=== PATIENT | male | born 1965 | race Caucasian/White ===

== ENCOUNTER 2016-08-31 14:58 | Emergency (ER) | payer OTHER ==
--- NOTE | 2016-08-31 15:06 | ER Document Report ---
ED Medical Screen (RME) - General Stated Complaint: BACK PAIN Notes: today was carrying 40lbs low back pain 5/5, has taken 400mg of motrin and lodine sharp stabbing pain denies UI, SI or sadle anesthesia ambulating with cane denies h/o chronic back pain TRAVEL OUTSIDE OF THE [place]. IN LAST 30 DAYS: No - Related Data Allergies/Adverse Reactions: Penicillins Allergy (Severe, Verified 03/23/16 11:17) Anaphylaxis Past Medical History - Social History Family history: Other - Pt is adopted - Past Medical History Cardiac Medical History: Reports: Hx Hypertension Denies: Hx Coronary Artery Disease, Hx Heart Attack Pulmonary Medical History: Denies: Hx Asthma, Hx Bronchitis, Hx COPD, Hx Pneumonia Neurological Medical History: Denies: Hx Cerebrovascular Accident, Hx Seizures Musculoskeltal Medical History: Denies Hx Arthritis - Immunizations Hx Diphtheria, Pertussis, Tetanus Vaccination: No Physical Exam - Vital signs Vitals: Temp Pulse Resp BP Pulse Ox 97.9 F 98 18 141/79 H 94 08/31/16 15:03 08/31/16 15:03 08/31/16 15:03 08/31/16 15:03 08/31/16 15:03 Course - Vital Signs Vital signs: Temp Pulse Resp BP Pulse Ox 97.9 F 98 18 141/79 H 94 08/31/16 15:03 08/31/16 15:03 08/31/16 15:03 08/31/16 15:03 08/31/16 15:03
[2016-08-31] MEDS ORDERED: LIDOCAINE 5% (700 MG) TRANSDERMAL ADH..PATCH TP ONE (16:38)
[2016-08-31] MEDS ORDERED: HYDROCODONE/ACETAMINOPHEN 5-325 MG 6 TAB/DSPK PO PRN (16:38)
--- NOTE | 2016-08-31 16:41 | ER Document Report ---
ED General - General Chief Complaint: Back Pain Stated Complaint: BACK PAIN TRAVEL OUTSIDE OF THE [place] IN LAST 30 DAYS: No - HPI Patient complains to provider of: back pain Onset: Yesterday Notes: Patient coming in for evaluation of lower back pain. Patient states bilateral lower back pain occurred after carrying partially 40 pounds. Patient states no other history of back pain and back injuries no history of back surgery. Patient denies any numbness and tingling in the perineal region no saddle anesthesias no loss of bowel or bladder function the fevers no chills no nausea no vomiting. Patient is currently ambulated with a cane which is new. - Related Data Allergies/Adverse Reactions: Penicillins Allergy (Severe, Verified 08/31/16 15:08) Anaphylaxis Past Medical History - Social History Smoking Status: Never Smoker Chew tobacco use (# tins/day): No Frequency of alcohol use: None Drug Abuse: None Family History: None Patient has suicidal ideation: No Patient has homicidal ideation: No - Past Medical History Cardiac Medical History: Reports: Hx Hypertension Denies: Hx Coronary Artery Disease, Hx Heart Attack Pulmonary Medical History: Denies: Hx Asthma, Hx Bronchitis, Hx COPD, Hx Pneumonia Neurological Medical History: Denies: Hx Cerebrovascular Accident, Hx Seizures Renal/ Medical History: Denies: Hx Peritoneal Dialysis Musculoskeltal Medical History: Denies Hx Arthritis - Immunizations Hx Diphtheria, Pertussis, Tetanus Vaccination: No Review of Systems - Review of Systems Constitutional: No symptoms reported EENT: No symptoms reported Cardiovascular: No symptoms reported Respiratory: No symptoms reported Gastrointestinal: No symptoms reported Genitourinary: No symptoms reported Male Genitourinary: No symptoms reported Musculoskeletal: Back pain Skin: No symptoms reported Hematologic/Lymphatic: No symptoms reported Neurological/Psychological: No symptoms reported -: Yes All other systems reviewed and negative Physical Exam - Vital signs Vitals: Temp Pulse Resp BP Pulse Ox 97.9 F 98 18 141/79 H 94 08/31/16 15:03 08/31/16 15:03 08/31/16 15:03 08/31/16 15:03 08/31/16 15:03 Interpretation: Normal - General General appearance: Appears well, Alert - HEENT Head: Normocephalic, Atraumatic Eyes: Normal Pupils: PERRL - Respiratory Respiratory status: No respiratory distress Chest status: Nontender Breath sounds: Normal Chest palpation: Normal - Cardiovascular Rhythm: Regular Heart sounds: Normal auscultation Murmur: No - Abdominal Inspection: Normal Distension: No distension Bowel sounds: Normal Tenderness: Nontender Organomegaly: No organomegaly - Back Back: Normal, Tender - Bilateral paraspinal tenderness no midline tenderness. No saddle anesthesias - Extremities General upper extremity: Normal inspection, Nontender, Normal color, Normal ROM , Normal temperature General lower extremity: Normal inspection, Nontender, Normal color, Normal ROM , Normal temperature, Normal weight bearing. No: Carie's sign - Neurological Neuro grossly intact: Yes Cognition: Normal Orientation: AAOx4 [place] Coma Scale Eye Opening: Spontaneous [place] Coma Scale Verbal: Oriented Mikh[place] Coma Scale Motor: Obeys Commands Mikhail Coma Scale Total: 15 Speech: Normal Motor strength normal: LUE, RUE, LLE, RLE Sensory: Normal - Psychological Associated symptoms: Normal affect, Normal mood - Skin Skin Temperature: Warm Skin Moisture: Dry Skin Color: Normal Course - Re-evaluation Re-evalutation: 08/31/16 23:06 The patient presents with low back pain without signs of spinal cord compression , cauda equina syndrome, infection, aneurysm, or other serious etiology. The patient is neurologically intact. Given the extremely low risk of these diagnoses further testing and evaluation for these possibilities does not appear to be indicated at this time. The patient has been instructed to return if the symptoms worsen or change in any way. .. - Vital Signs Vital signs: Temp Pulse Resp BP Pulse Ox 98.5 F 95 17 149/85 H 95 08/31/16 16:55 08/31/16 16:55 08/31/16 16:55 08/31/16 16:55 08/31/16 16:55 Discharge - Discharge Clinical Impression: Back pain Qualifiers: Back pain location: low back pain Chronicity: acute Back pain laterality: bilateral Sciatica presence: without sciatica Qualified Code(s): M54.5 - Low back pain Condition: Good Disposition: HOME, SELF-CARE Instructions: Ice Packs ([facility]), Low Back Pain ([facility]), Oral Narcotic Medication ( [facility]), Warm Packs ([facility]) Additional Instructions: Your x-rays on shows mild arthritis. No signs of fracture or subluxation of her spine. Please follow-up with your primary care physician for further evaluation of your back pain. Continue anti-inflammatory medication If you received good pain relief with the Lidoderm but you cannot afford them he may also try solanspa lidocaine [id number] Prescriptions: Hydrocodone Bit/Acetaminophen [Hydrocodon-Acetaminophen 5-325] 1 each PO Q6 #20 tablet Lidocaine [Lidoderm 5% (700 mg) Transdermal Patch] 1 patch TP DAILY #30 adh..patch Forms: Return to Work
[2016-08-31 17:51] VITALS: BP 149/85
== END 2016-08-31 16:55 | disposition home or self-care (01) ==
LOC: ER 14:58
DX: M54.5 Low back pain (principal); X50.0XXA Overexertion from strenuous movement or load, initial encounter; I10 Essential (primary) hypertension; Z87.892 Personal history of anaphylaxis; Z88.0 Allergy status to penicillin
CPT/HCPCS: 72110; 99283

== ENCOUNTER 2017-03-04 11:31 | Emergency (ER) | payer OTHER ==
--- NOTE | 2017-03-04 12:06 | ER Document Report ---
ED Psych Disorder / Suicide - General Stated Complaint: PSYCH EVAL Time Seen by Provider: 03/04/17 11:53 Mode of Arrival: Ambulatory Information source: Patient TRAVEL OUTSIDE OF THE [place] IN LAST 30 DAYS: No - HPI Patient complains to provider of: Suicidal ideation, Suicidal plan Onset: Other - 2 days Onset was: Sudden Quality of pain: No pain Suicide Risk Factors: Depressed, Male Normal mood: No Associated symptoms: Depressed, Flat affect Similar symptoms previously: No Recently seen / treated by doctor: Yes Notes: Patient is a 51-year-old male who was sent from the [place] for complaints of suicidal ideation with plan to overdose on his medications, he reports the symptoms started 2 days ago, when I asked him what occurred 2 days ago to make him feel this way he stated "I do not really want to talk about it right now", he denies any history of similar symptoms previously, has never been in any counseling or mental health treatment prior, does not currently take any mental health medications, denies pain or injury - Related Data Allergies/Adverse Reactions: Penicillins Allergy (Severe, Verified 03/04/17 12:35) Anaphylaxis Past Medical History - General Information source: Patient - Social History Smoking Status: Current Every Day Smoker Frequency of alcohol use: Occasional Family History: None - Past Medical History Cardiac Medical History: Reports: Hx Hypertension Denies: Hx Coronary Artery Disease, Hx Heart Attack Pulmonary Medical History: Denies: Hx Asthma, Hx Bronchitis, Hx COPD, Hx Pneumonia Neurological Medical History: Denies: Hx Cerebrovascular Accident, Hx Seizures Renal/ Medical History: Denies: Hx Peritoneal Dialysis Musculoskeltal Medical History: Denies Hx Arthritis - Immunizations Hx Diphtheria, Pertussis, Tetanus Vaccination: No Review of Systems - Review of Systems Constitutional: No symptoms reported EENT: No symptoms reported Cardiovascular: No symptoms reported Respiratory: No symptoms reported Gastrointestinal: No symptoms reported Genitourinary: No symptoms reported Male Genitourinary: No symptoms reported Musculoskeletal: No symptoms reported Skin: No symptoms reported Hematologic/Lymphatic: No symptoms reported Neurological/Psychological: See HPI -: Yes All other systems reviewed and negative Physical Exam - Vital signs Vitals: Temp Pulse Resp BP Pulse Ox 98.3 F 75 20 132/83 H 95 03/04/17 12:13 03/04/17 12:13 03/04/17 12:13 03/04/17 12:13 03/04/17 12:13 Interpretation: Normal - General General appearance: Appears well, Alert - HEENT Head: Normocephalic, Atraumatic Eyes: Normal Pupils: PERRL - Respiratory Respiratory status: No respiratory distress Chest status: Nontender Breath sounds: Normal Chest palpation: Normal - Cardiovascular Rhythm: Regular Heart sounds: Normal auscultation Murmur: No - Abdominal Inspection: Obese Distension: No distension Bowel sounds: Normal Tenderness: Nontender Organomegaly: No organomegaly - Back Back: Normal, Nontender - Extremities General upper extremity: Normal inspection, Nontender, Normal color, Normal ROM , Normal temperature General lower extremity: Normal inspection, Nontender, Normal color, Normal ROM , Normal temperature, Normal weight bearing. No: Carie's sign - Neurological Neuro grossly intact: Yes Cognition: Normal Orientation: AAOx4 Mikh[place] Coma Scale Eye Opening: Spontaneous [place] Coma Scale Verbal: Oriented [place] Coma Scale Motor: Obeys Commands Mikhail Coma Scale Total: 15 Speech: Normal Motor strength normal: LUE, RUE, LLE, RLE Sensory: Normal - Psychological Associated symptoms: Depressed, Flat affect - Skin Skin Temperature: Warm Skin Moisture: Dry Skin Color: Normal Course - Re-evaluation Re-evalutation: 03/04/17 14:31 this patient has been seen and evaluated by mental health team who recommended for involuntary commitment, IVC paperwork has been completed, patient will remain in the emergency room for safety due to suicidal ideation with plan, he is otherwise medically stable for transfer or discharge - Vital Signs Vital signs: Temp Pulse Resp BP Pulse Ox 98.3 F 75 20 132/83 H 95 03/04/17 12:13 03/04/17 12:13 03/04/17 12:13 03/04/17 12:13 03/04/17 12:13 - Laboratory Result Diagrams: 03/04/17 11:50 03/04/17 11:50 Laboratory results interpreted by me: 03/04/17 03/04/17 03/04/17 11:50 11:50 12:40 RDW 14.8 H Seg Neutrophils % 82.8 H Lymphocytes % 11.8 L Absolute Neutrophils 8.3 H Urine Ketones 20 H Salicylates < 1.0 L Acetaminophen < 10 L - EKG Interpretation by Me EKG shows normal: Sinus rhythm Rate: Normal Rhythm: NSR, APC's Discharge - Discharge Clinical Impression: Suicidal ideation Condition: Stable Disposition: PSYCH HOSP/UNIT
[2017-03-04 12:13] LABS: ABSOLUTE BASOPHILS # (AUTO) 0.1 10^3/uL (0.0-0.2); ABSOLUTE LYMPHOCYTES (AUTO) 1.2 10^3/uL (0.5-4.7); ABSOLUTE MONOCYTES (AUTO) 0.4 10^3/uL (0.1-1.4); ABSOLUTE NEUT (AUTO) 8.3 10^3/uL (1.7-8.2); BASOPHILS % (AUTO) 0.8 % (0-2); EOSINOPHILS % (AUTO) 0.3 % (0-6); HEMATOCRIT 47.8 % (37.9-51.0); HEMOGLOBIN 15.9 g/dL (13.5-17.0); HGB HCT DIFFERENCE -0.1; LYMPHOCYTES % (AUTO) 11.8 % (13-45); MEAN CORPUSCULAR HEMOGLOBIN 31.8 pg (27.0-33.4); MEAN CORPUSCULAR HGB CONC 33.3 g/dL (32.0-36.0); MEAN CORPUSCULAR VOLUME 96 fl (80-97); MONOCYTES % (AUTO) 4.3 % (3-13); RED CELL DISTRIBUTION WIDTH 14.8 % (11.5-14.0); SEGMENTED NEUTROPHILS % (AUTO) 82.8 % (42-78); WHITE BLOOD COUNT 10.1 10^3/uL (4.0-10.5)
--- NOTE | 2017-03-04 12:19 | EKG REPORT ---
SEVERITY:- ABNORMAL ECG - SINUS RHYTHM MULTIPLE ATRIAL PREMATURE COMPLEXES LEFT ANTERIOR FASCICULAR BLOCK BORDERLINE PROLONGED QT INTERVAL : Confirmed by: Catherine Squires MD 04-Mar-2017 12:18:40
[2017-03-04 12:29] LABS: ALANINE AMINOTRANSFERASE 37 U/L (21-72); ALBUMIN 4.8 g/dL (3.5-5.0); ALCOHOL < 10 mg/dL (NONE DETECTED); ALKALINE PHOSPHATASE 82 U/L (38-126); ANION GAP 14 (5-19); ASPARTATE AMINO TRANSFERASE 26 U/L (17-59); BILIRUBIN,DIRECT 0.4 mg/dL (0.0-0.4); BILIRUBIN,TOTAL 0.7 mg/dL (0.2-1.3); BLOOD UREA NITROGEN 13 mg/dL (7-20); CALCIUM 10.2 mg/dL (8.4-10.2); CARBON DIOXIDE 23 mmol/L (22-30); CHLORIDE 102 mmol/L (98-107); CREATININE RESULT 0.81 mg/dL (0.52-1.25); GLUCOSE 107 mg/dL (75-110); POTASSIUM 4.3 mmol/L (3.6-5.0); SODIUM 138.8 mmol/L (137-145); TOTAL PROTEIN 7.8 g/dL (6.3-8.2)
[2017-03-04 13:29] LABS: APPEARANCE,URINE CLEAR; BILIRUBIN,URINE NEGATIVE (NEGATIVE); GLUCOSE, URINE NEGATIVE (NEGATIVE); KETONES,URINE 20 mg/dL (NEGATIVE); LEUKOCYTE ESTERASE,URINE NEGATIVE (NEGATIVE); NITRITE,URINE NEGATIVE (NEGATIVE); PROTEIN,URINE NEGATIVE (NEGATIVE); URINE SPECIFIC GRAVITY 1.008; UROBILINOGEN,URINE NEGATIVE mg/dL (<2.0)
[2017-03-04 14:49] LABS: URINE BARBITURATES SCREEN NEGATIVE; URINE METHADONE SCREEN NEGATIVE; URINE OPIATES LOW NEGATIVE; URINE PHENCYCLIDINE SCREEN NEGATIVE
[2017-03-04] MEDS ORDERED: HYDROCHLOROTHIAZIDE 25 MG TABLET PO ONE (18:30)
[2017-03-04] MEDS ORDERED: LOSARTAN POTASSIUM 50 MG TABLET PO ONE (19:00)
[2017-03-04] MEDS ORDERED: NICOTINE 21 MG/24 HR PATCH.TD24 TD ONE (19:51)
[2017-03-04] MEDS: GABAPENTIN 300 MG CAPSULE PO SCH (22:30)
[2017-03-04] MEDS: HYDROXYZINE PAMOATE 50 MG CAPSULE PO PRN (22:30)
[2017-03-04] MEDS: BUSPIRONE HCL 10 MG TABLET PO SCH (22:30)
[2017-03-05] MEDS: BUSPIRONE HCL 10 MG TABLET PO SCH ×2 (08:53→21:06)
[2017-03-05] MEDS: HYDROXYZINE PAMOATE 50 MG CAPSULE PO PRN (10:16)
[2017-03-05] MEDS: HYDROCHLOROTHIAZIDE 25 MG TABLET PO SCH (10:17)
[2017-03-05] MEDS: GABAPENTIN 300 MG CAPSULE PO SCH ×2 (11:19→21:06)
[2017-03-05] MEDS: LOSARTAN POTASSIUM 50 MG TABLET PO SCH (11:20)
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
[2017-03-06] MEDS: BUSPIRONE HCL 10 MG TABLET PO SCH ×2 (07:39→22:18)
[2017-03-06] MEDS: HYDROXYZINE PAMOATE 50 MG CAPSULE PO PRN ×2 (07:39→14:06)
[2017-03-06] MEDS: NICOTINE 21 MG/24 HR PATCH.TD24 TD SCH (09:14)
[2017-03-06] MEDS: GABAPENTIN 300 MG CAPSULE PO SCH ×2 (09:14→22:17)
[2017-03-06] MEDS: HYDROCHLOROTHIAZIDE 25 MG TABLET PO SCH (09:15)
[2017-03-06] MEDS: LOSARTAN POTASSIUM 50 MG TABLET PO SCH (09:15)
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
[2017-03-06] MEDS ORDERED: IBUPROFEN 600 MG TABLET PO ONE ×2 (18:59→22:13)
[2017-03-06] MEDS ORDERED: IBUPROFEN 800 MG TABLET ONE (22:10)
[2017-03-07] MEDS: BUSPIRONE HCL 10 MG TABLET PO SCH (08:09)
--- NOTE | 2017-03-07 08:21 | EKG REPORT ---
SEVERITY:- NORMAL ECG - SINUS RHYTHM : Confirmed by: Regino Campos MD 07-Mar-2017 08:21:25
[2017-03-07] MEDS: LOSARTAN POTASSIUM 50 MG TABLET PO SCH (09:58)
[2017-03-07] MEDS: HYDROCHLOROTHIAZIDE 25 MG TABLET PO SCH (09:59)
[2017-03-07] MEDS: GABAPENTIN 300 MG CAPSULE PO SCH (10:00)
[2017-03-07] MEDS: NICOTINE 21 MG/24 HR PATCH.TD24 TD SCH (10:00)
[2017-03-07 17:01] VITALS: BP 136/84
== END 2017-03-07 16:55 ==
LOC: ER 11:31
DX: R45.851 Suicidal ideations (principal); F17.200 Nicotine dependence, unspecified, uncomplicated; E66.9 Obesity, unspecified; I10 Essential (primary) hypertension; F43.20 Adjustment disorder, unspecified; F10.99 Alcohol use, unspecified with unspecified alcohol-induced disorder; Z88.0 Allergy status to penicillin
CPT/HCPCS: 36415; 80053; 80307; 81001; 85025; 93005; 93010; 99285

== ENCOUNTER 2017-03-13 12:03 | Emergency (ER) | payer OTHER ==
[2017-03-13] MEDS ORDERED: ACTIVATED CHARCOAL 25 GM BOTTLE PO ONE (12:20)
[2017-03-13 13:42] LABS: ABSOLUTE LYMPHOCYTES (AUTO) 1.3 10^3/uL (0.5-4.7); ABSOLUTE MONOCYTES (AUTO) 0.6 10^3/uL (0.1-1.4); ABSOLUTE NEUT (AUTO) 8.6 10^3/uL (1.7-8.2); BASOPHILS % (AUTO) 0.4 % (0-2); EOSINOPHILS % (AUTO) 0.2 % (0-6); LYMPHOCYTES % (AUTO) 12.6 % (13-45); MEAN CORPUSCULAR HEMOGLOBIN 32.4 pg (27.0-33.4); MEAN CORPUSCULAR HGB CONC 34.1 g/dL (32.0-36.0); MEAN CORPUSCULAR VOLUME 95 fl (80-97); MONOCYTES % (AUTO) 5.9 % (3-13); RED BLOOD COUNT 4.94 10^6/uL (4.35-5.55); RED CELL DISTRIBUTION WIDTH 14.2 % (11.5-14.0); SEGMENTED NEUTROPHILS % (AUTO) 80.9 % (42-78); WHITE BLOOD COUNT 10.7 10^3/uL (4.0-10.5)
[2017-03-13 13:48] LABS: ALANINE AMINOTRANSFERASE 35 U/L (21-72); ALBUMIN 4.6 g/dL (3.5-5.0); ALKALINE PHOSPHATASE 70 U/L (38-126); ANION GAP 12 (5-19); ASPARTATE AMINO TRANSFERASE 27 U/L (17-59); BILIRUBIN,DIRECT 0.4 mg/dL (0.0-0.4); BILIRUBIN,TOTAL 0.6 mg/dL (0.2-1.3); BLOOD UREA NITROGEN 17 mg/dL (7-20); CALCIUM 10.4 mg/dL (8.4-10.2); CARBON DIOXIDE 30 mmol/L (22-30); CHLORIDE 97 mmol/L (98-107); CREATININE RESULT 0.86 mg/dL (0.52-1.25); GLUCOSE 176 mg/dL (75-110); POTASSIUM 3.7 mmol/L (3.6-5.0); SODIUM 138.5 mmol/L (137-145); TOTAL PROTEIN 7.4 g/dL (6.3-8.2)
[2017-03-13 14:22] LABS: ALCOHOL < 10 mg/dL (NONE DETECTED)
--- NOTE | 2017-03-13 15:43 | ER Document Report ---
ED General - General Chief Complaint: Overdose Stated Complaint: POSSIBLE OVERDOSE Time Seen by Provider: 03/13/17 12:13 TRAVEL OUTSIDE OF THE [place] IN LAST 30 DAYS: No - HPI Patient complains to provider of: Intentional overdose of Neurontin Notes: Patient coming in for an intentional overdose of Neurontin. Patient has had multiple visits here for psychiatric issues in the past was recently discharged from inpatient psychiatric unit approximately 3 days ago. Patient states he did take his multiple tablets of Neurontin and a suicide attempt. Patient states feeling depressed over the last few days. Patient stated that he is mostly in his life. Patient denies any fevers chills nausea vomiting chest pain abdominal pain - Related Data Allergies/Adverse Reactions: Penicillins Allergy (Severe, Verified 03/04/17 12:35) Anaphylaxis Past Medical History - General Information source: Patient, [facility] Records - Social History Smoking Status: Current Every Day Smoker Chew tobacco use (# tins/day): No Frequency of alcohol use: Heavy Drug Abuse: None Family History: None Patient has suicidal ideation: Yes Patient has homicidal ideation: No - Past Medical History Cardiac Medical History: Reports: Hx Hypertension Denies: Hx Coronary Artery Disease, Hx Heart Attack Pulmonary Medical History: Denies: Hx Asthma, Hx Bronchitis, Hx COPD, Hx Pneumonia Neurological Medical History: Denies: Hx Cerebrovascular Accident, Hx Seizures Endocrine Medical History: Reports: Hx Diabetes Mellitus Type 2 Renal/ Medical History: Denies: Hx Peritoneal Dialysis Musculoskeltal Medical History: Denies Hx Arthritis Psychiatric Medical History: Reports: Hx Depression - Immunizations Hx Diphtheria, Pertussis, Tetanus Vaccination: No Review of Systems - Review of Systems Constitutional: No symptoms reported EENT: No symptoms reported Cardiovascular: No symptoms reported Respiratory: No symptoms reported Gastrointestinal: No symptoms reported Genitourinary: No symptoms reported Male Genitourinary: No symptoms reported Musculoskeletal: No symptoms reported Skin: No symptoms reported Hematologic/Lymphatic: No symptoms reported Neurological/Psychological: Other - Intentional overdose and suicide attempt Physical Exam - Vital signs Vitals: Temp Resp BP Pulse Ox 98 F 16 142/105 H 90 L 03/13/17 12:29 03/13/17 12:29 03/13/17 12:29 03/13/17 12:29 Interpretation: Normal - General General appearance: Appears well, Alert - HEENT Head: Normocephalic, Atraumatic Eyes: Normal Pupils: PERRL - Respiratory Respiratory status: No respiratory distress Chest status: Nontender Breath sounds: Normal Chest palpation: Normal - Cardiovascular Rhythm: Regular Heart sounds: Normal auscultation Murmur: No - Abdominal Inspection: Normal Distension: No distension Bowel sounds: Normal Tenderness: Nontender Organomegaly: No organomegaly - Back Back: Normal, Nontender - Extremities General upper extremity: Normal inspection, Nontender, Normal color, Normal ROM , Normal temperature General lower extremity: Normal inspection, Nontender, Normal color, Normal ROM , Normal temperature, Normal weight bearing. No: Carie's sign - Neurological Neuro grossly intact: Yes Cognition: Normal Orientation: AAOx4 Kechi Coma Scale Eye Opening: Spontaneous Mikhail Coma Scale Verbal: Oriented Kechi Coma Scale Motor: Obeys Commands Kechi Coma Scale Total: 15 Speech: Normal Motor strength normal: LUE, RUE, LLE, RLE Sensory: Normal - Psychological Associated symptoms: Depressed, Flat affect - Skin Skin Temperature: Warm Skin Moisture: Dry Skin Color: Normal Course - Re-evaluation Re-evalutation: 03/13/17 15:42 Patient was evaluated here in the ER and monitored. Patient's evaluation does not reveal any critical etiologies patient took medication prior to EMS arrival a dose of charcoal was given to the patient. Patient tolerated this without difficulty. Patient case was discussed with poison control recommend 6 hour observation. Recommend repeat EKG at that time to as well. Patient should be medically cleared at 530 6:00 - Vital Signs Vital signs: Temp Pulse Resp BP Pulse Ox 98.2 F 14 122/84 96 03/13/17 14:01 03/13/17 15:01 03/13/17 15:00 03/13/17 15:01 - Laboratory Result Diagrams: 03/13/17 12:20 03/13/17 12:20 Laboratory results interpreted by me: 03/13/17 03/13/17 12:20 12:20 WBC 10.7 H RDW 14.2 H Seg Neutrophils % 80.9 H Lymphocytes % 12.6 L Absolute Neutrophils 8.6 H Chloride 97 L Glucose 176 H Calcium 10.4 H Salicylates < 1.0 L Acetaminophen < 10 L Discharge - Discharge Clinical Impression: Suicidal ideation, Intentional overdose of gabapentin Condition: Fair Disposition: PSYCH HOSP/UNIT
[2017-03-13 16:00] LABS: APPEARANCE,URINE CLEAR; BILIRUBIN,URINE NEGATIVE (NEGATIVE); GLUCOSE, URINE NEGATIVE (NEGATIVE); KETONES,URINE NEGATIVE (NEGATIVE); LEUKOCYTE ESTERASE,URINE NEGATIVE (NEGATIVE); NITRITE,URINE NEGATIVE (NEGATIVE); PROTEIN,URINE NEGATIVE (NEGATIVE); URINE SPECIFIC GRAVITY 1.003; UROBILINOGEN,URINE NEGATIVE mg/dL (<2.0)
[2017-03-13 16:15] LABS: URINE BARBITURATES SCREEN NEGATIVE; URINE METHADONE SCREEN NEGATIVE; URINE OPIATES LOW NEGATIVE; URINE PHENCYCLIDINE SCREEN NEGATIVE
--- NOTE | 2017-03-13 16:15 | ER Document Report ---
ED Psych Disorder / Suicide - General Information source: Patient, [facility] Records TRAVEL OUTSIDE OF THE [place] IN LAST 30 DAYS: No - HPI Patient complains to provider of: Overdose - Gabapentin, Suicidal ideation, Suicidal attempt Onset: Just prior to arrival Onset was: Sudden Suicide Risk Factors: Depressed, Frightened friends/family, Lack of social support, Male, Other - pt is concerned for what he says are possible legal probs Situational problems related to: Son Similar symptoms previously: Yes - seen here in the ER last week, IVC to [facility] 03/08 Recently seen / treated by doctor: Yes - D/C from [facility] 03/10 <CORNELIO CHAVEZ - Last Filed: 03/15/17 13:31> <CHRISTOPHER MIRANDA - Last Filed: 03/15/17 14:01> - General Chief Complaint: Overdose Stated Complaint: POSSIBLE OVERDOSE Time Seen by Provider: 03/13/17 12:13 - HPI Notes: Patient is a 51 year old male who presents today via ems due to intentional overdose of his prescribed Gabapentin in attempt at suicide. Note, patient was seen and evaluated for suicidal ideations 03/07 and was IVC for transfer to [facility] 03/08 for inpatient psychiatric placement. Per [facility], patient was discharged 03/10 and transported home via a younger male roommate. Patient today states he wanted to today. He states he continues to experience the same stressors (familial and per the patient, possibly legal); however, since his discharge 03/10 from [facility], he has not been able to communicate with his exwife and step son. Patient states neither individuals will answer their phones, nor return his calls. Patient states he overdosed on his medications because he wanted to . Patient endorses suicidal ideations. Patient states after he took the pills he called his exwife, and then called 911 to report the overdose. Patient is mildly groggy, but does arouse to calling his name. Patient's mood is depressed. Patient endorses suicidal ideations, and endorses this overdose as an attempt at by suicide. Patient denies homicidal ideations, intent, plan, or means. Patient denies A/V H; delusions not noted. Thought processes were organized, but guarded. Conversational speech was soft for prosody. Intellectual abilities were estimated within average range. Attention and focus were poor. Insight, judgment, and impulse control were poor. Unspecified Depressive Disorder Patient is recommended for IVC for placement in a psychiatric facility. Patient is considered a danger to himself as he endorses wanting to by suicide. I consulted with Dr. Lewis in regards to the care and management of this patient. ED MD is in agreement with disposition and recommendations. 03/14/2017 Conducted check in with patient who is a 51 year old male under IVC at [facility] ED due to suicide attempt via overdose of his Gabapentin. Patient today inquires into his status. Patient is advised that he is being referred for in patient hospitalizations due to his attempt at suicide, and endorsing continued SI. Patient talks about being discharged from [facility] last week, and not being able to afford his prescription at the pharmacy. Patient states he planned to go to the [facility] to see if they would rewrite it. Patient states he has no contact with his family since his admission. Patient is A&O. Mood is euthymic with normal affect. Patient endorses SI. Patient denies HI. Patient denies A/V H; delusions not noted. Thought processes were organized. Conversational speech was WNL for prosody. Intellectual abilities were estimated within average range. Attention and focus were fair. Insight, judgment, and impulse control were poor. Unspecified Depressive Disorder Patient is recommended for continued IVC and to continue to pursue placement in a psychiatric facility. Patient is considered a danger to himself as he endorses wanting to by suicide. Additionally, patient has numerous familial and social stressors exasperating his depressive symptoms, which he reports precipitated this suicide attempt. I consulted with Dr. Lewis in regards to the care and management of this patient. ED MD is in agreement with disposition and recommendations. 03/15/2017 Conducted check in with patient who is under IVc at [facility] ED. Patient today states he is not experiencing suicidal ideations. Patient states he does not know why he overdosed, but immediately regretted it which is why he states he called 911. Discussed at length with patient engaging in therapy to assist with coping with his familial stressors. Patient acknowledged that [facility] Discussed with patient allowing his roommate to manage his medications out of a lock box, with no access by the patient. Patient states he is agreeable to this , and feels as though his roommate would assist him in this manner. Patient is A&O. Mood is euthymic with smiling/normal even bright affect. Patient denies suicidal/homicidal ideations, intent, plan, or means. Patient denies A/V H; delusions not noted. Thought processes were organized and rational. Conversational speech was WNL. Intellectual abilities were estimated within average range. Attention and focus were fair. Insight, judgment, and impulse control were fair. Unspecified Depressive Disorder Patient is psychiatrically cleared for discharge. Patient is recommended to rescind IVC and discharge to his roommate to follow up with the [facility] , tomorrow at 1400. This appointment was scheduled on his behalf. Patient demonstrates improved judgment and decision making abilities aeb engaging in discharge planning and identifying his needs at this time. Patient additionally reports he has spoken with his family members and feels it is important to engage with them in therapy. Patient denies suicidal/homicidal ideations and therefor no longer meets criteria for IVC per the [id number]. I consulted with Dr. Lewis in regards to the care and management of this patient. (CORNELIO CHAVEZ) - Related Data Allergies/Adverse Reactions: Penicillins Allergy (Severe, Verified 03/04/17 12:35) Anaphylaxis Home Medications: Current Home Medications Duloxetine HCl [Cymbalta] 60 mg DAILY 03/14/17 [History] Past Medical History - General Information source: Patient, [facility] Office - [facility], [facility] Records - Social History Smoking Status: Current Every Day Smoker Chew tobacco use (# tins/day): No Frequency of alcohol use: Heavy Drug Abuse: None Family History: None Patient has suicidal ideation: No - denies today 03/15 Patient has homicidal ideation: No - Past Medical History Cardiac Medical History: Reports: Hx Hypertension Denies: Hx Coronary Artery Disease, Hx Heart Attack Pulmonary Medical History: Denies: Hx Asthma, Hx Bronchitis, Hx COPD, Hx Pneumonia Neurological Medical History: Denies: Hx Cerebrovascular Accident, Hx Seizures Endocrine Medical History: Reports: Hx Diabetes Mellitus Type 2 Renal/ Medical History: Denies: Hx Peritoneal Dialysis Musculoskeltal Medical History: Denies Hx Arthritis Psychiatric Medical History: Reports: Hx Depression - Immunizations Hx Diphtheria, Pertussis, Tetanus Vaccination: No <CORNELIO CHAVEZ - Last Filed: 03/15/17 13:31> Course - Laboratory Result Diagrams: 03/13/17 12:20 03/13/17 12:20 <CORNELIO CHAVEZ - Last Filed: 03/15/17 13:31> - Laboratory Result Diagrams: 03/13/17 12:20 03/13/17 12:20 <CHRISTOPHER MIRANDA - Last Filed: 03/15/17 14:01> - Vital Signs Vital signs: Temp Pulse Resp BP Pulse Ox 97.3 F 80 16 142/85 H 98 03/15/17 09:47 03/15/17 09:47 03/15/17 09:47 03/15/17 09:47 03/15/17 09:47 - Laboratory Laboratory results interpreted by me: 03/13/17 03/13/17 12:20 12:20 WBC 10.7 H RDW 14.2 H Seg Neutrophils % 80.9 H Lymphocytes % 12.6 L Absolute Neutrophils 8.6 H Chloride 97 L Glucose 176 H Calcium 10.4 H Salicylates < 1.0 L Acetaminophen < 10 L Discharge <CORNELIO CHAVEZ - Last Filed: 03/15/17 13:31> <CHRISTOPHER MIRANDA - Last Filed: 03/15/17 14:01> - Discharge Clinical Impression: Suicidal ideation, Intentional overdose of gabapentin Depression Qualifiers: Depression Type: unspecified Qualified Code(s): F32.9 - Major depressive disorder, single episode, unspecified Condition: Stable Disposition: HOME, SELF-CARE Additional Instructions: Overdose / Ingestion You have taken more medication than you should have. After your evaluation and care, it is felt that your overdose is not likely to be harmful or of any significant consequences to you and you are being discharged. In the future, you should be careful not to take more medications than what is prescribed for you. Although your overdose does not seem to be of any danger to you at this time, if you develop any unusual or unexpected symptoms after your discharge, you should return to the Emergency Department immediately for re-evaluation. Depression Your evaluation reveals that you have mental depression. While symptoms may be vague, they often include disturbance of sleep, fatigue, loss of appetite , and general loss of interest in life. While depression may be a side effect of drugs, or a reaction to a major change in your life, many cases have no known cause. If depression is acute, and related to a major loss in your life, you can expect it to clear completely with time. If you have been depressed a long time , are prone to repeated bouts of depression or low mood, or have been thinking of suicide, get help. Depression can be treated with anti-depressant medication and counselling. Long-term depression will often take a few weeks to clear, even with appropriate medication. Follow-up care is important. Contact your physician, the hospital emergency center, crisis line, or your counsellor if you are losing control or having self-destructive thoughts. Suicidal Ideation Suicidal ideation is a common medical term for thoughts about suicide, which may be as detailed as a formulated plan, without the suicidal act itself. Although most people who undergo suicidal ideation do not commit suicide, some go on to make suicide attempts. The range of suicidal ideation varies greatly from fleeting to detailed planning, role playing, and unsuccessful attempts. An appointment has been scheduled on your behalf with the [facility] for tomorrow, 04/16/17 at 1400. Please work with your provider regarding medication management and also engaging in therapy. Please take your medications only as prescribed. Please return if your symptoms worsen. You have been provided a list of resources, to include the contact numbers for mobile crisis should you feel the needs to talk. Referrals: [facility] [Provider Group] - 03/16/17 2:00 pm
--- NOTE | 2017-03-13 19:15 | ER Document Report ---
Doctor's Note Notes: 03/13/17 19:14 This is a 51-year-old man with a history of depression who was brought to the emergency room after an overdose with gabapentin. Patient has been observed in the ER for the past several hours. He denies any chest pain or shortness of breath. He is depressed. He does tell me that he was trying to kill himself. His labs and vital signs have been stable. Repeat EKG shows normal sinus rhythm , left anterior hemiblock, no acute ST-T wave changes. EKG is essentially unchanged from the previous. At this time, the patient is medically clear for psychiatric disposition.
--- NOTE | 2017-03-13 21:28 | EKG REPORT ---
SEVERITY:- ABNORMAL ECG - SINUS RHYTHM LEFT ANTERIOR FASCICULAR BLOCK LATE PRECORDIAL TRANSITION : Confirmed by: Regino Campos MD 13-Mar-2017 21:28:06
--- NOTE | 2017-03-13 21:29 | EKG REPORT ---
SEVERITY:- ABNORMAL ECG - SINUS TACHYCARDIA VENTRICULAR PREMATURE COMPLEX LEFT ANTERIOR FASCICULAR BLOCK BORDERLINE R WAVE PROGRESSION, ANTERIOR LEADS : Confirmed by: Regino Campos MD 13-Mar-2017 21:28:19
--- NOTE | 2017-03-14 09:14 | ER Document Report ---
Doctor's Note Notes: 03/14/17 09:37 As the rounding physician for our psychiatric patients, I have reviewed the chart, vitals, lab work. Patient has been examined and noted to be resting comfortably at this time. I am awaiting mental health in put.
[2017-03-14] MEDS ORDERED: GABAPENTIN 300 MG CAPSULE PO ONE (12:00)
[2017-03-14] MEDS ORDERED: (PENDING PHARMACY ID) (Gabapentin [Neurontin] 300 MG) PO SCH (18:00)
[2017-03-14] MEDS: GABAPENTIN 300 MG CAPSULE PO SCH (21:55)
[2017-03-15] MEDS: GABAPENTIN 300 MG CAPSULE PO SCH (09:59)
[2017-03-15] MEDS ORDERED: DULOXETINE HCL 30 MG CAPSULE.DR PO SCH (10:00)
[2017-03-15] MEDS ORDERED: LOSARTAN POTASSIUM 50 MG TABLET PO SCH (10:00)
[2017-03-15] MEDS ORDERED: HYDROCHLOROTHIAZIDE 12.5 MG CAPSULE PO SCH (10:00)
[2017-03-15] MEDS ORDERED: HYDROCHLOROTHIAZIDE 25 MG TABLET PO SCH (10:00)
--- NOTE | 2017-03-15 10:28 | ER Document Report ---
Doctor's Note Notes: 03/15/17 10:27 Patient evaluated this a.m. Patient denies any concerns or problems at this time. Patient resting comfortably in a chair and watching TV. Patient is awaiting disposition.
[2017-03-15 14:37] VITALS: BP 143/95
== END 2017-03-15 14:14 | disposition home or self-care (01) ==
LOC: ER 12:03
DX: T42.6X2A Poisoning by other antiepileptic and sedative-hypnotic drugs, intentional self-harm, initial encounter (principal); Y92.009 Unspecified place in unspecified non-institutional (private) residence as the place of occurrence of the external cause; F32.9 Major depressive disorder, single episode, unspecified; F17.200 Nicotine dependence, unspecified, uncomplicated; I10 Essential (primary) hypertension; E11.9 Type 2 diabetes mellitus without complications; Z88.0 Allergy status to penicillin; Z87.892 Personal history of anaphylaxis
CPT/HCPCS: 93005 ×2; 99284; 36415; 80307 ×4; 85025; 80053; 81001; 93010; J3490